=== PATIENT | female | born 1990 | race African-American/Black ===

== ENCOUNTER 2018-11-09 10:53 | Emergency (ER) | payer OTHER ==
[~2018-11-09] VITALS: Ht 175.3 cm; Wt 109.1 kg
[~2018-11-09 10:53] MED LIST: NOCURR
[2018-11-09 11:04] VITALS: BP 112/71
[2018-11-09] MEDS ORDERED: KETOROLAC TROMETHAMINE 30 MG/ML VIAL IM ONE (13:00)
== END 2018-11-09 15:22 | disposition home or self-care (01) ==
LOC: EMS 10:55
DX: S83.92XA Sprain of unspecified site of left knee, initial encounter (principal); W01.0XXA Fall on same level from slipping, tripping and stumbling without subsequent striking against object, initial encounter; Y93.89 Activity, other specified; Y92.89 Other specified places as the place of occurrence of the external cause; Y99.8 Other external cause status
CPT/HCPCS: 73562; 81025; 96372; 99283; J1885